=== PATIENT | male | born 1945 | race Caucasian/White ===

== ENCOUNTER → 2022-05-05 | Outpatient (CLI) | payer MEDICARE | LOC: KOH-I 14:53 | DX: M54.2 Cervicalgia (principal); M47.816 Spondylosis without myelopathy or radiculopathy, lumbar region | CPT/HCPCS: 72040 ==

== ENCOUNTER → 2022-05-25 | Outpatient (CLI) | payer MEDICARE | LOC: CT 13:20 | DX: I65.21 Occlusion and stenosis of right carotid artery (principal); E11.42 Type 2 diabetes mellitus with diabetic polyneuropathy; E78.2 Mixed hyperlipidemia; I13.10 Hypertensive heart and chronic kidney disease without heart failure, with stage 1 through stage 4 chronic kidney disease, or unspecified chronic kidney disease; N18.9 Chronic kidney disease, unspecified | CPT/HCPCS: 70498; Q9967 ==